=== PATIENT | male | born 1975 | race African-American/Black ===

== ENCOUNTER 2016-12-22 00:11 | Emergency (ER) | payer OTHER, MEDICAID ==
[~2016-12-22] VITALS: Ht 185.4 cm; Wt 109.0 kg
[2016-12-22] MEDS ORDERED: TETANUS, DIPHTHERIA, PERTUSSIS VAC/PF 0.5ML (>7YR OLD) IM ONE (02:15)
[2016-12-22] MEDS ORDERED: SODIUM CHLORIDE 0.9% 1,000 ML IV ONE (03:30)
[2016-12-22 03:38] LABS: BASOPHILS % 0.4 % (0.0-2.0); EOSINOPHILS % 0.3 % (0.0-5.0); HEMATOCRIT. 40.7 % (42.0-52.0); HEMOGLOBIN. 13.5 g/dL (14.0-18.0); LYMPHOCYTES % 18.7 % (20.0-50.0); MEAN CORPUSCULAR HEMOGLOBIN 26.2 pg (28.0-32.0); MEAN CORPUSCULAR VOLUME 79.1 fL (80.0-94.0); MEAN PLATELET VOLUME 7.5 fl (7.4-10.4); MONOCYTES % 7.3 % (2.0-8.0); NEUTROPHILS % 73.3 % (40.0-76.0); PLATELET 273 x1000/uL (130-400); RED BLOOD CELL COUNT 5.14 mill/uL (4.7-6.1); RED CELL DISTRIBUTION WIDTH 16.9 % (11.6-14.6)
[2016-12-22 03:50] LABS: CARBON DIOXIDE 23 mEq/L (21-32); CHLORIDE 103 mEq/L (98-107); ETHANOL BLOOD 63 mg/dL
[2016-12-22] MEDS ORDERED: BACITRACIN ZINC OINT UDPKT TOP ONE (04:45)
[2016-12-22 04:50] VITALS: BP 131/72
== END 2016-12-22 05:26 | disposition home or self-care (01) ==
LOC: ER 00:11
DX: S02.2XXA Fracture of nasal bones, initial encounter for closed fracture (principal); S30.850A Superficial foreign body of lower back and pelvis, initial encounter; S00.03XA Contusion of scalp, initial encounter; Y04.0XXA Assault by unarmed brawl or fight, initial encounter; Y90.3 Blood alcohol level of 60-79 mg/100 ml; F10.129 Alcohol abuse with intoxication, unspecified; Y35.893A Legal intervention involving other specified means, suspect injured, initial encounter; Y93.89 Activity, other specified; Y92.018 Other place in single-family (private) house as the place of occurrence of the external cause; R00.0 Tachycardia, unspecified
CPT/HCPCS: 36415; 70450; 80048; 85025; 90471; 90715; 96360; 99285; G0482; J7030; Z7610